=== PATIENT | female | born 1975 | race Caucasian/White ===

== ENCOUNTER 2017-06-05 16:31 | Emergency (ER) | payer OTHER ==
[~2017-06-05] VITALS: Ht 165.1 cm; Wt 70.9 kg
[~2017-06-05 16:31] MED LIST: BUPR-79 PO; CITA40TA12 PO; FERR325T51 PO; MIRT15TA2 PO; PANT40TA PO; SUCR1TAB29 PO
[2017-06-05 17:01] VITALS: TEMP 36.8; Ht 165.1 cm; Wt 70.9 kg
[2017-06-05] MEDS ORDERED: FLUCONAZOLE 100 MG TAB PO STA (17:17)
[2017-06-05] MEDS ORDERED: IBUPROFEN 600 MG TAB PO STA (17:17)
[2017-06-05] MEDS ORDERED: OXYCODONE/ACETAMINOPHEN 5-325 TAB PO STA (17:17)
--- NOTE | 2017-06-05 17:22 | EMERGENCY ROOM VISIT NOTE ---
History Report prepared by Thomas: Surya Whitmore Under the Supervision of: Dr. Honorio Kirby M.D. First contact with patient: 17:09 Chief Complaint: VAGINAL DISCHARGE Stated Complaint: YEAST INFEC,BLADDER BACK PAIN History of Present Illness The patient is a 41 year old female who presents to the Emergency Room with complaints of constant white vaginal discharge starting about a week ago. The patient additionally is complaining of burning with urination and a fishy odor. She states that she was recently put on a Z-pack for a sinus infection, and she states that afterwards is when the symptoms started. The patient notes that she has a history of yeast infections after being put on antibiotics. She additionally notes that she is having some back problems. The patient states that she has been taking ibuprofen for the pain. Source of History: patient Onset: a week ago Position: other (vagina) Quality: other (discharge) Timing: constant Associated Symptoms: + urinary symptoms Note: Associated symptoms: Fishy odor Review of Systems See HPI for pertinent positives & negatives. A total of 10 systems reviewed and were otherwise negative. Past Medical & Surgical Medical Problems: (1) Yeast infection Social History Smoking Status: Never Smoker Alcohol Use: none Drug Use: none Marital Status: Housing Status: lives with family Occupation Status: unemployed Current/Historical Medications Scheduled Bupropion (Wellbutrin Sr), 150 MG PO BID Citalopram Hydrobromide (Celexa), 40 MG PO DAILY Ferrous Sulfate (Iron Supplement), 1 TAB PO DAILY Fluconazole (Diflucan), 150 MG PO 3XWK Metronidazole (Flagyl), 500 MG PO BID Mirtazapine Soltab (Remeron Soltab), 15 MG PO DAILY Scheduled PRN Oxycodone/Acetaminophen 5MG/325MG (Percocet 5MG/325MG), 1-2 TAB PO Q4H PRN for Pain Allergies Coded Allergies: Aspirin (Verified Allergy, Intermediate, rash, 06/05/17) Penicillins (Verified Allergy, Intermediate, rash, 06/05/17) Physical Exam Vital Signs Date Time Temp Pulse Resp B/P (MAP) Pulse Ox O2 Delivery O2 Flow Rate FiO2 06/05/17 19:10 90 19 125/82 94 06/05/17 18:05 99 17 141/90 96 Room Air 06/05/17 17:01 36.8 86 20 114/81 98 Room Air Physical Exam GENERAL: Patient is a healthy-appearing well-nourished female. HEAD: Normocephalic atraumatic EYES: Ocular movements intact pupils equal and react to light OROPHARYNX mucous membranes are moist no exudates present no erythema or edema present NECK: Supple no nuchal rigidity CHEST: Good equal expansion LUNGS: Clear and equal to auscultation CARDIAC: Normal S1 and S2 ABDOMEN: Soft nontender no guarding BACK: No CVA tenderness VAGINAL: Whitish discharge is present. EXTREMITIES: No pain upon palpation normal muscle strength in all groups no clubbing cyanosis or edema NEURO: Patient is following commands and answering questions appropriately. Alert and oriented x3 Cranial Nerves 2-12 grossly intact Medical Decision & Procedures Laboratory Results Test 06/05/17 17:17 Date/Time Source Procedure Growth Status 06/05/17 17:17 Cervix Swab Trichomonas Preparation - Final Complete Labs reviewed by ED physician. Medications Administered Medications (Trade) Dose Ordered Sig/Devyn Route Start Time Stop Time Status Last Admin Dose Admin Fluconazole (Diflucan Tab) 150 mg NOW STAT PO 06/05/17 17:17 06/05/17 17:20 DC 06/05/17 17:35 150 MG Ibuprofen (Motrin Tab) 600 mg NOW STAT PO 06/05/17 17:17 06/05/17 17:20 DC 06/05/17 17:35 600 MG Oxycodone/ Acetaminophen (Percocet 5/ 325MG Home Pack) 1 homepack UD ONCE PO 06/05/17 17:30 06/05/17 17:31 DC 06/05/17 19:05 1 HOMEPACK Oxycodone/ Acetaminophen (Percocet 5-325mg Tab) 2 tab NOW STAT PO 06/05/17 17:17 06/05/17 17:20 DC 06/05/17 17:35 2 TAB Metronidazole (Flagyl Tab) 500 mg NOW STAT PO 06/05/17 17:24 06/05/17 17:25 DC 06/05/17 17:34 500 MG Ondansetron HCl (ZOFRAN ODT 4MG Home Pack) 1 homepack UD ONCE PO 06/05/17 19:00 06/05/17 19:01 DC 06/05/17 19:05 1 HOMEPACK Ondansetron HCl (Zofran Odt) 4 mg ONE ONCE PO 06/05/17 19:00 06/05/17 19:01 DC 06/05/17 18:59 4 MG ED Course 1709: Past medical records reviewed. The patient was evaluated in room B10. A complete history and physical examination was performed. 1717: Oxycodone/Acetaminophen 2 Tab PO, Motrin Tab 600mg PO, Diflucan Tab 150mg PO 1724: Flagyl Tab 500mg PO 1725: Upon reexamination the patient is doing well. I discussed results and treatment plan with the patient. She verbalizes agreement and understanding. The patient is ready for discharge. 1730: Oxycodone/ Acetaminophen 1 Home Pack PO 1900: Zofran ODT 4mg PO, Zofran ODT 4mg 1 Home Pack Medical Decision Differential diagnoses include: vaginitis This is a 41-year-old male who presents emergency department complaining of increased infection after being started on azithromycin. The patient is also complaining with burning with urination. I recommended that the patient provide a urine sample however after staying in the emergency department for 3 hours the patient was unable to provide one. She was given Diflucan and Zofran in the emergency department and started on Flagyl. I will continue the patient on Diflucan and Flagyl pending culture results. Medication Reconcilliation Current Medication List: was personally reviewed by me Blood Pressure Screening Patient's blood pressure: Normal blood pressure Impression Primary Impression: Vaginal discharge Scribe Attestation The scribe's documentation has been prepared under my direction and personally reviewed by me in its entirety. I confirm that the note above accurately reflects all work, treatment, procedures, and medical decision making performed by me. Departure Information Dispostion Home / Self-Care Prescriptions Fluconazole (DIFLUCAN) 150 Mg Tab 150 MG PO 3XWK, #3 TAB Prov: Honorio Kirby MD 06/05/17 Oxycodone/Acetaminophen 5MG/325MG (PERCOCET 5MG/325MG) Tab 1-2 TAB PO Q4H Y for Pain, #14 TAB Prov: Honorio Kirby MD 06/05/17 Metronidazole (Flagyl) 500 Mg Tab 500 MG PO BID for 7 Days, #14 TAB Prov: Honorio Kirby MD 06/05/17 Referrals Rob Poe PA-C (PCP) Forms HOME CARE DOCUMENTATION FORM, IMPORTANT VISIT INFORMATION, WORK / SCHOOL INSTRUCTIONS Patient Instructions [facility] Additional Instructions DO NOT TAKE ALCOHOL WITH FLAGYL You received narcotic or benzodiazepene medication while in the emergency room today. This is an addictive medication that may cause drowziness as well as constipation. Do not drive, operate heavy machinery, or drink alcohol under the influence of this medication. Culture results are usually available in approx 48 hours You have been examined and treated today on an emergency basis only. This is not a substitute for, or an effort to provide, complete comprehensive medical care. It is impossible to recognize and treat all injuries or illnesses in a single emergency department visit. It is therefore important that you follow up closely with your PCP. Call as soon as possible for an appointment. Thank you for your time and consideration. I look forward to speaking with you again soon. Please don't hesitate to call us if you have any questions.
[2017-06-05] MEDS ORDERED: METRONIDAZOLE 250 MG TAB PO STA (17:24)
[2017-06-05] MEDS ORDERED: OXYC-57 PO (17:30)
[2017-06-05] MEDS ORDERED: PERCOCET HOME PACK PO ONE (17:30)
[2017-06-05] MEDS ORDERED: METR-163 PO (17:30)
[2017-06-05] MEDS ORDERED: FLUC150T PO (17:30)
[2017-06-05] MEDS ORDERED: ONDANSETRON HOME PACK 4MG OD TAB PO ONE (19:00)
[2017-06-05] MEDS ORDERED: ONDANSETRON 4MG OD TAB PO ONE (19:00)
[2017-06-05 19:10] VITALS: BP 125/82; PULSE 90; O2SAT 94
--- NOTE | 2017-06-06 16:39 | Pharmacy Progress Note ---
ED Pharmacist Progress Note Date of Service: Jun 06, 2017. Received call from [place] ([facility]) noting that prescription for fluconazole was denied by insurance - will only cover 2 tabs in a 25 [address] period[address] Kirby who OK'd dispensing 2 tablets (instead of the originally prescribed 3 tabs). Called [place] ([facility]) and relayed the above information.
[2017-06-08 00:44] LABS: CHLAMYDIA TRACH RNA*** NOT DETECTED (NOT DETECTED); GC (NEIS GONORRHOEAE)RNA** NOT DETECTED (NOT DETECTED)
== END 2017-06-05 19:05 | disposition home or self-care (01) ==
LOC: C.EDB 16:32
DX: N89.8 Other specified noninflammatory disorders of vagina (principal); Z79.899 Other long term (current) drug therapy; Z88.0 Allergy status to penicillin; Z88.6 Allergy status to analgesic agent